=== PATIENT | male | born 1995 | race Caucasian/White ===

== ENCOUNTER 2020-04-28 19:50 | Emergency (ER) | payer OTHER ==
[2020-04-28 20:29] LABS: BASOPHIL 0.5 % (0-2); EOSINOPHIL 0.7 % (0-5); HGB 15.7 g/dl (13.2-18.0); LYMPHOCYTE 28.8 % (15-48); MCH 31.5 pg (25.0-31.0); MCHC 34.9 g/dL (32.0-36.0); MCV 90.2 fL (78.0-100.0); MONOCYTE 6.6 % (0-12); MPV 10.1 fL (6.0-9.5); NEUTROPHIL 62.9 % (41-80); NRBC 0; PLT 208 K/uL (150-400); RBC 4.99 M/uL (4.70-6.00); RDW 11.9 % (11.5-14.0); WBC 5.6 K/uL (4.0-10.5)
[2020-04-28 20:40] LABS: BILIRUBIN NEGATIVE (NEGATIVE); BLOOD NEGATIVE Ery/uL (NEGATIVE); CLARITY CLEAR (CLEAR); COLOR YELLOW (YELLOW); GLUCOSE (U) NORMAL (NORMAL); LEUKOCYTES NEGATIVE Leu/uL (NEGATIVE); NITRITE NEGATIVE (NEGATIVE); PROTEIN NEGATIVE (NEGATIVE); SPECIFIC GRAVITY 1.015 (1.001-1.030); UROBILINOGEN 0.2 mg/dL (0.2-1.0)
[2020-04-28 20:46] LABS: AMPHETAMINES NEGATIVE (NEGATIVE); BARBITURATES NEGATIVE (NEGATIVE); ECSTASY (MDMA) NEGATIVE (NEGATIVE); MARIJUANA (THC) NEGATIVE (NEGATIVE); METHADONE NEGATIVE (NEGATIVE); OPIATES NEGATIVE (NEGATIVE); OXYCODONE NEGATIVE (NEGATIVE)
[2020-04-28 20:52] LABS: ACETAMINOPHEN (TYLENOL) < 2.0 ug/mL (10.0-30.0); ALBUMIN 4.4 g/dL (3.4-5.0); ALKALINE PHOSHATASE 86 U/L (46-116); ALT 46 U/L (16-63); AST 29 U/L (15-37); BILIRUBIN - TOTAL 0.4 mg/dL (0.2-1.0); BUN 9 mg/dL (7-18); BUN/CREAT RATIO (CALC) 8.7 RATIO; CHLORIDE 100 mmol/L (98-107); CO2 (BICARBONATE) 35 mmol/L (21-32); CREATININE 1.03 mg/dL (0.67-1.17); GLOBULIN (CALCULATION) 3.4 g/dL; GLUCOSE 98 mg/dL (74-106); POTASSIUM 4.4 mmol/L (3.5-5.1); TOTAL PROTEIN 7.8 g/dL (6.4-8.2)
== END 2020-04-29 00:20 | disposition home or self-care (01) ==
LOC: FER 19:50
PROVIDERS: Emergency Medicine Emergency Medical Services
DX: F32.9 Major depressive disorder, single episode, unspecified (principal); I10 Essential (primary) hypertension; Z79.899 Other long term (current) drug therapy
CPT/HCPCS: 36415; 80053; 80305; 81003; 85025; 99284; G0480

== ENCOUNTER 2020-10-22 18:58 | Emergency (ER) | payer OTHER ==
[2020-10-23 00:55] LABS: BASOPHIL 0.3 % (0-2); EOSINOPHIL 1.8 % (0-5); HCT 45.4 % (42.0-52.0); HGB 16.1 g/dl (13.2-18.0); LYMPHOCYTE 31.6 % (15-48); MCH 32.3 pg (25.0-31.0); MCHC 35.5 g/dL (32.0-36.0); MONOCYTE 9.8 % (0-12); NEUTROPHIL 56.2 % (41-80); NRBC 0; PLT 236 K/uL (150-400); RBC 4.99 M/uL (4.70-6.00)
[2020-10-23 01:28] LABS: ALKALINE PHOSHATASE 80 U/L (46-116); ALT 42 U/L (16-63); AST 27 U/L (15-37); BILIRUBIN - TOTAL 0.5 mg/dL (0.2-1.0); BUN 12 mg/dL (7-18); BUN/CREAT RATIO (CALC) 11.1 RATIO; CHLORIDE 100 mmol/L (98-107); CO2 (BICARBONATE) 31 mmol/L (21-32); CREATININE 1.08 mg/dL (0.67-1.17); GLOBULIN (CALCULATION) 3.5 g/dL; GLUCOSE 111 mg/dL (74-106); TOTAL PROTEIN 7.5 g/dL (6.4-8.2)
[2020-10-23 01:37] LABS: ACETAMINOPHEN (TYLENOL) <2.0 ug/mL (10.0-30.0)
[2020-10-23 03:57] LABS: AMPHETAMINES NEGATIVE (NEGATIVE); BARBITURATES NEGATIVE (NEGATIVE); ECSTASY (MDMA) NEGATIVE (NEGATIVE); MARIJUANA (THC) NEGATIVE (NEGATIVE); METHADONE NEGATIVE (NEGATIVE); OPIATES NEGATIVE (NEGATIVE); OXYCODONE NEGATIVE (NEGATIVE)
== END 2020-10-23 04:19 | disposition home or self-care (01) ==
LOC: FER 18:58
PROVIDERS: Internal Medicine
DX: F32.9 Major depressive disorder, single episode, unspecified (principal); Z20.822 Contact with and (suspected) exposure to COVID-19
CPT/HCPCS: 36415; 80053; 80305; 85025; 99284; G0480; U0002